=== PATIENT | female | born 1955 | race Caucasian/White ===

== ENCOUNTER 2018-04-18 05:55 | Day surgery (SDC) | payer OTHER ==
[2018-04-18] MEDS ORDERED: PROPOFOL 20 ML ×2 (07:38→08:09)
[2018-04-18] MEDS ORDERED: FENTAnyl 50 MCG/ML VIAL (07:39)
[2018-04-18] MEDS ORDERED: ALBUTEROL 0.083% (NEB) 2.5 MG/3 ML AMP HHN (08:00)
[2018-04-18] MEDS ORDERED: FENTAnyl 50 MCG/ML VIAL IV (08:00)
[2018-04-18] MEDS ORDERED: ONDANSETRON 4 MG INJ IV (08:00)
[2018-04-18] MEDS ORDERED: ACETAMINOPHEN 500 MG TAB PO (08:00)
== END 2018-04-18 11:45 | disposition home or self-care (01) ==
LOC: GIL 05:55
DX: Z12.11 Encounter for screening for malignant neoplasm of colon (principal); D12.2 Benign neoplasm of ascending colon; D12.3 Benign neoplasm of transverse colon; K31.7 Polyp of stomach and duodenum; K64.4 Residual hemorrhoidal skin tags; K20.8 Other esophagitis
CPT/HCPCS: 43239; 88305; 88312